=== PATIENT | female | born 1955 | race Caucasian/White ===

== ENCOUNTER 2018-05-08 07:57 | Outpatient (CLI) | payer BC | END 2018-05-08 07:58 | disposition home or self-care (01) | LOC: BICMAMMO 07:57 | PROVIDERS: ATTEND Internal Medicine Rheumatology | DX: M81.0 Age-related osteoporosis without current pathological fracture (principal) | CPT/HCPCS: 77080 ==

== ENCOUNTER 2019-05-14 10:47 | Outpatient (CLI) | payer BC ==
--- NOTE | 2019-05-14 12:22 | BD ---
BONE DENSITOMETRY: Date: 05/14/19 HISTORY: Postmenopausal osteoporosis screening. FINDINGS: Lumbar Spine: BMD (g/cm2) L1 0.660 T-Score: -3.0 L2 0.694 T-Score: -3.0 L3 0.698 T-Score: -3.5 L4 0.706 T-Score: -3.2 Total 0.691 T-Score: -3.2 Left Femoral Neck: 0.614 T-Score: -2.1 Total Femur: 0.775 T-Score: -1.4 IMPRESSION: 1. Bone mineral density of the lumbar spine indicates osteoporosis. 2. Bone mineral density of the femoral neck indicates osteopenia. POS: OFF
== END 2019-05-14 10:48 | disposition home or self-care (01) ==
LOC: BICMAMMO 10:47
PROVIDERS: ATTEND Internal Medicine Rheumatology
DX: M81.0 Age-related osteoporosis without current pathological fracture (principal); M85.852 Other specified disorders of bone density and structure, left thigh
CPT/HCPCS: 77080

== ENCOUNTER 2020-05-17 08:14 | Outpatient (CLI) | payer BC ==
--- NOTE | 2020-05-17 08:45 | BD ---
EXAM: Bone densitometry using DEXA HISTORY: 64 yo female. Screening for postmenopausal osteoporosis FINDINGS: L1--bone mineral density 0.831 g/sq cm; T score -1.4 ; Z score 0.0 L2--bone mineral density 0.699 g/sq cm; T score -3.0 ; Z score -1.4 L3--bone mineral density 0.786 g/sq cm; T score -2.7 ; Z score -1.1 L4--bone mineral density 0.796 g/sq cm; T score -2.4 ; Z score -0.7 Total L1-L4--bone mineral density 0.776 g/sq cm; T score -2.5 ; Z score -0.9 Left femoral neck--bone mineral density0.650; T score -1.8 ; Z score -0.4 Total proximal left femur--bone mineral density 0.820; T score -1.0 ; Z score 0.1 There has been an interval improvement of 12.4% in the BMD of the lumbar spine and a improvement of 5.9% in the BMD of the proximal femur since the previous study of 05/14/2019. IMPRESSION: Osteoporosis
== END 2020-05-17 08:15 | disposition home or self-care (01) ==
LOC: BICMAMMO 08:14
PROVIDERS: ATTEND Internal Medicine Rheumatology
DX: M81.0 Age-related osteoporosis without current pathological fracture (principal)
CPT/HCPCS: 77080

== ENCOUNTER 2021-05-19 07:51 | Outpatient (CLI) | payer BC | END 2021-05-19 07:52 | disposition home or self-care (01) | LOC: BICMAMMO 07:51 | PROVIDERS: ATTEND Internal Medicine Rheumatology | DX: M81.0 Age-related osteoporosis without current pathological fracture (principal) | CPT/HCPCS: 77080 ==

== ENCOUNTER 2022-05-23 08:13 | Outpatient (CLI) | payer BC | END 2022-05-23 08:14 | disposition home or self-care (01) | LOC: BICMAMMO 08:13 | PROVIDERS: ATTEND Internal Medicine Rheumatology | DX: M81.0 Age-related osteoporosis without current pathological fracture (principal); M85.851 Other specified disorders of bone density and structure, right thigh; M85.852 Other specified disorders of bone density and structure, left thigh | CPT/HCPCS: 77080 ==

== ENCOUNTER 2022-12-26 10:59 | Outpatient (CLI) | payer BC | END 2022-12-26 11:00 | disposition home or self-care (01) | LOC: BICMAMMO 10:59 | PROVIDERS: ATTEND Obstetrics & Gynecology | DX: Z12.31 Encounter for screening mammogram for malignant neoplasm of breast (principal); Z85.3 Personal history of malignant neoplasm of breast; Z98.890 Other specified postprocedural states | CPT/HCPCS: 77063; 77067 ==

== ENCOUNTER 2024-03-03 12:49 | Outpatient (CLI) | payer MEDICARE | END 2024-03-03 12:50 | disposition home or self-care (01) | LOC: BICMAMMO 12:49 | PROVIDERS: ATTEND Obstetrics & Gynecology | DX: Z12.31 Encounter for screening mammogram for malignant neoplasm of breast (principal); Z85.3 Personal history of malignant neoplasm of breast; Z98.890 Other specified postprocedural states | CPT/HCPCS: 77063; 77067 ==

== ENCOUNTER 2025-04-09 10:17 | Outpatient (CLI) | payer MEDICARE | END 2025-04-09 10:18 | disposition home or self-care (01) | LOC: BICMAMMO 10:17 | PROVIDERS: ATTEND Obstetrics & Gynecology | DX: Z12.31 Encounter for screening mammogram for malignant neoplasm of breast (principal); Z85.3 Personal history of malignant neoplasm of breast; Z98.890 Other specified postprocedural states | CPT/HCPCS: 77063; 77067 ==

== ENCOUNTER 2025-06-12 09:26 | Outpatient (CLI) | payer MEDICARE | END 2025-06-12 09:27 | disposition home or self-care (01) | LOC: BICMAMMO 09:26 | PROVIDERS: ATTEND Obstetrics & Gynecology | DX: Z13.820 Encounter for screening for osteoporosis (principal); M85.89 Other specified disorders of bone density and structure, multiple sites | CPT/HCPCS: 77080 ==